=== PATIENT | male | born 1960 | race Caucasian/White ===

== ENCOUNTER 2018-12-27 11:17 | Emergency (ER) | payer OTHER ==
[~2018-12-27] VITALS: Ht 177.8 cm; Wt 91.2 kg
[2018-12-27 11:25] VITALS: Ht 177.8 cm; Wt 91.2 kg
[2018-12-27 12:08] LABS: BASOPHIL % 0.4 % (0-2); PLATELET COUNT 272 x10^3mcL (130-400); RED CELL DISTRIBUTION WIDTH 13.3 % (11.5-14.5)
[2018-12-27 12:21] LABS: CALCIUM 8.9 mg/dL (8.5-10.1); CARBON DIOXIDE 25.8 mmol/L (21-32); CHLORIDE SERUM 106 mmol/L (98-107); CREATININE SERUM 1.1 mg/dL (0.7-1.3); GFR1 > 60 mL/min; GLUCOSE SERUM 165 mg/dL (74-106); POTASSIUM SERUM 3.8 mmol/L (3.5-5.1); SODIUM SERUM 142 mmol/L (136-145)
[2018-12-27 12:25] LABS: ALBUMIN 3.9 g/dL (3.4-5.0); ALKALINE PHOSPHATASE 57 U/L (46-116); AST/SGOT 36 U/L (15-37); BILIRUBIN TOTAL 0.7 mg/dL (0.20-1.00); TOTAL PROTEIN, SERUM 6.8 g/dL (6.4-8.2); URIC ACID 5.5 mg/dL (3.5-7.2)
[2018-12-27 12:26] LABS: microscopic required? YES; urine erythrocyte 3+ (NEGATIVE)
[2018-12-27 12:37] LABS: ALT/SGPT 49 U/L (16-63)
[2018-12-27 13:38] VITALS: BP 129/73
== END 2018-12-27 13:38 | disposition home or self-care (01) ==
LOC: ED 11:17
PROVIDERS: Emergency Medicine
DX: N23 Unspecified renal colic (principal); K80.20 Calculus of gallbladder without cholecystitis without obstruction; R73.9 Hyperglycemia, unspecified; K57.90 Diverticulosis of intestine, part unspecified, without perforation or abscess without bleeding; N28.1 Cyst of kidney, acquired; F41.9 Anxiety disorder, unspecified
CPT/HCPCS: J1885; J2405; J7030